=== PATIENT | female | born 1985 | race African-American/Black ===

== ENCOUNTER 2016-12-20 21:25 | Emergency (ER) | payer MEDICAID ==
[~2016-12-20] VITALS: Ht 160 cm; Wt 104.5 kg
[2016-12-20 21:27] VITALS: BP 161/102; PULSE 98; RESP 16; TEMP 99.3; O2SAT 97
--- NOTE | 2016-12-20 21:41 | PD ---
HPI Chief Complaint: Cold / Flu Symptoms Time Seen by Provider: 21:40 Travel History International Travel<30 days: No Contact w/Intl Traveler<30days: No Traveled to known affect area: No History of Present Illness HPI 31 YO F presents to the ED for evaluation of 2 day history of sore throat, chills, left ear pain. States that "my voice has gone out." The patient denies rhinorrhea, sinus congestion, cough, nausea, vomiting. She denies sick contacts. No treatment attempt at home. Patient also complains of nonpainful "bump" on the inner canthus of the right eye x "months." Denies vision changes. No treatment attempted at home. PFSH Past Medical History Medical History: Denies Significant Hx Tetanus Vaccination: > 5 Years ?: Unknown LMP: 11/22/2016 : 4 Para: 2 Miscarriage: 2 Past Surgical History Section: Yes (*2) Thoracic Surgery: Yes (chest tube for collapsed lung ) Other Surgery: Yes Social History Alcohol Use: Yes (occ) Tobacco Use: Yes Substance Use: Yes (mj) Allergies-Medications (Allergen,Severity, Reaction): Coded Allergies: No Known Allergies (Unverified , 12/20/16) Reported Meds & Prescriptions Reported Meds & Active Scripts Active Ibuprofen 600 Mg Tab 600 Mg PO Q8H PRN Magic Mouthwash Adult Liq (Multi-Ingredient Mouthwash/Gargle) 120 Ml Susp 5 Ml SWISH-SWAL ACHS Each 5mL contains: Nystatin 200,000units, Diphenhydramine 4.25mg, Viscous Lidocaine 10mg, Meza syrup 0.8 mL Fluticasone Nasal [place] 50 Mcg/Act Naspr 50 Mcg EACH NARE BID 50 mcg/spray Review of Systems Except as stated in HPI: all other systems reviewed are Neg Physical Exam Narrative GENERAL: Well-nourished, well-developed AA female in NAD SKIN: Warm and dry. 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 No signs of infection. HEAD: Normocephalic. Atraumatic. EYES: No scleral icterus. No injection or drainage. PERRLA. EOMI. ENT: Pearly reagan tympanic membranes bilaterally. Nasal mucosa is boggy,mild inflammation. Oropharynx without mild erythema. Tonsils 1+ bilaterally. No exudate or edema noted. Uvula midline. NECK: Supple, trachea midline. No JVD or lymphadenopathy. CARDIOVASCULAR: Regular rate and rhythm without murmurs, gallops, or rubs. 2+ DP and radial pulses bilaterally. RESPIRATORY: Breath sounds clear and equal bilaterally. No accessory muscle use. GASTROINTESTINAL: Abdomen soft, non-tender, nondistended. MUSCULOSKELETAL: No cyanosis, or edema. BACK: Nontender without obvious deformity. No CVA tenderness. Data Data Last Documented VS Vital Signs Date Time Temp Pulse Resp B/P Pulse Ox O2 Delivery O2 Flow Rate FiO2 12/20/16 21:27 99.3 98 16 161/102 97 Room Air Orders Influenzae A/B Antigen (12/20/16 21:40) Group A Rapid Strep Screen (12/20/16 21:40) Ibuprofen (Motrin) (12/20/16 22:15) Strep Culture (Group A) (12/20/16 21:49) MDM Medical Decision Making Medical Screen Exam Complete: Yes Emergency Medical Condition: Yes Differential Diagnosis Pharyngitis versus strep pharyngitis versus viral syndrome versus influenza versus dermatosis papulosis nigra versus other Narrative Course 31 YO F presents to the ED for evaluation of 2 day history of sore throat, chills, left ear pain, raspy voice. The patient denies rhinorrhea, sinus congestion, cough, nausea, vomiting, sick contacts. Patient also complains of nonpainful "bump" on the inner canthus of the right eye x "months." Denies vision changes. Vitals reviewed. Physical exam reveals an AA F in NAD. 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 There is a subcentimeter, nontender, unpigmented, maculopapular lesion of the inner canthus of the right eye. No signs of infection. No problems with the eye. Pearly reagan tympanic membranes bilaterally. The nasal mucosa is boggy with mild inflammation. Tonsils are 1+ bilaterally without exudate or edema. Uvula midline. Airway patent. Chest CTAB. Rapid strep and influenza swabs negative. I suspect there is an allergic component to her pharyngitis. She was prescribed Flonase, ibuprofen, magic mouthwash. She is instructed to add an OTC second generation antihistamine to these meds and follow up with the PCP and leader assembler. She indicated understanding of the instructions and is agreeable to the plan. The patient is stable and discharged home. Diagnosis Primary Impression: Pharyngitis Qualified Code: J02.9 - Pharyngitis, unspecified etiology Referrals: Primary Care Physician Patient Instructions: General Instructions, Pharyngitis (ED) Additional Instructions: Rest, hydrate. Take OTC antihistamine such as Claritin or Zyrtec daily for 14 days. Take medication as prescribed. Follow-up with your primary care provider. Follow-up with a leader assembler for evaluation of your new skin lesions. Return to the ED for any urgent or emergent medical condition. Med/Other Pt SpecificInfo: Prescription(s) given Scripts Ibuprofen 600 Mg Qnt066 Mg PO Q8H PRN (PAIN) #15 TAB Ref 0 Prov:Ramesh Dorantes MD 12/20/16 Zbtggnya-Wjhtbporgborzxg-Nutyedbgw Liq (Magic Mouthwash Adult Liq)120 Ml Susp5 Ml SWISH-SWAL ACHS #120 ML Ref 0 Each 5mL contains: Nystatin 200,000units, Diphenhydramine 4.25mg, Viscous Lidocaine 10mg, Meza syrup 0.8 mL Prov:Ramesh Dorantes MD 12/20/16 Fluticasone Nasal [place] 50 Mcg/Act Naspr50 Mcg EACH NARE BID #1 BOTTLE Ref 0 50 mcg/spray Prov:Ramesh Dorantes MD 12/20/16 Disposition: 01 DISCHARGE HOME Condition: Stable Ese Bradford Dec 20, 2016 21:41
[2016-12-20] MEDS ORDERED: IBUPROFEN 800 MG TAB PO ONE (22:15)
[2016-12-20] MEDS ORDERED: FLUT50SP EACH NARE (22:51)
[2016-12-20] MEDS ORDERED: MAGICADU2 SWISH-SWAL (22:51)
[2016-12-20] MEDS ORDERED: IBUP-232 PO (22:51)
== END 2016-12-20 23:25 | disposition home or self-care (01) ==
LOC: NEPE 21:25
DX: J02.9 Acute pharyngitis, unspecified (principal)
CPT/HCPCS: 87081; 87804; 87880; 99283

== ENCOUNTER 2017-01-08 09:33 | Emergency (ER) | payer MEDICAID ==
[~2017-01-08] VITALS: Ht 160 cm; Wt 113.0 kg
[~2017-01-08 09:33] MED LIST: FLUT50SP EACH NARE; IBUP-232 PO; MAGICADU2 SWISH-SWAL
[2017-01-08 09:35] VITALS: BP 167/92; PULSE 102; RESP 15; TEMP 98.2; O2SAT 98
[2017-01-08] MEDS ORDERED: TRIMSOL LEFT EYE (11:04)
--- NOTE | 2017-01-08 11:05 | PD ---
HPI Chief Complaint: Eye Problems/Injury Time Seen by Provider: 10:37 Travel History International Travel<30 days: No Contact w/Intl Traveler<30days: No Traveled to known affect area: No History of Present Illness HPI Patient is a 31-year-old female who presents to emergency room with complaints of left-sided eye pain and itchiness and drainage. She reports that onset of symptoms were yesterday, she does not use contacts or glasses. Denies fevers or chills, no other complaints. Patient also complaining of right-sided skin tag on her right armpit, reports that the skin tag appears bigger and would like it removed. PFSH Past Medical History Diminished Hearing: No Genitourinary: Yes (UTI HX ) Hypertension: Yes (PT STATES DOES NOT TAKE MED WAS DURING ) Tetanus Vaccination: > 5 Years Influenza Vaccination: No ?: Unknown LMP: 11/22/16 : 4 Para: 2 Miscarriage: 2 Past Surgical History Section: Yes (*2) Thoracic Surgery: Yes (chest tube for collapsed lung ) Other Surgery: Yes Social History Alcohol Use: Yes (occ) Tobacco Use: Yes Substance Use: Yes (mj) Allergies-Medications (Allergen,Severity, Reaction): Coded Allergies: No Known Allergies (Unverified , 01/08/17) Reported Meds & Prescriptions Reported Meds & Active Scripts Active No Active Prescriptions or Reported Medications Review of Systems General / Constitutional: No: Fever Eyes: Positive: Drainage, Redness, Tearing, No: Diploplia, Foreign Body Sensation, Pain, Visual changes HENT: No: Headaches Cardiovascular: No: Chest Pain or Discomfort Respiratory: No: Shortness of Breath Gastrointestinal: No: Abdominal Pain Genitourinary: No: Dysuria Musculoskeletal: No: Pain Skin: No Rash Neurologic: No: Weakness Psychiatric: No: Depression Endocrine: No: Polydipsia Hematologic/Lymphatic: No: Easy Bruising Physical Exam Narrative GENERAL: NAD,nontoxic SKIN: Focused skin assessment warm/dry. patient with skin tag under her right axilla, there is no purulence or drainage, there is no abscess, no bleeding or erythema or redness HEAD: Atraumatic. Normocephalic. EYES: Pupils equal and round. No scleral icterus. Left eye with injection and with purulent drainage. EOMI intact, no hyphema or hypopyon ENT: No nasal bleeding or discharge. Mucous membranes pink and moist. NECK: Trachea midline. No JVD. CARDIOVASCULAR: Regular rate and rhythm. No murmur appreciated. RESPIRATORY: No accessory muscle use. Clear to auscultation. Breath sounds equal bilaterally. GASTROINTESTINAL: Abdomen soft, non-tender, nondistended. Hepatic and splenic margins not palpable. MUSCULOSKELETAL: No obvious deformities. No clubbing. No cyanosis. No edema. Data Data Last Documented VS Vital Signs Date Time Temp Pulse Resp B/P Pulse Ox O2 Delivery O2 Flow Rate FiO2 01/08/17 10:10 17 01/08/17 09:35 98.2 102 167/92 98 [facility] Medical Decision Making Medical Screen Exam Complete: Yes Emergency Medical Condition: Yes Interpretation(s) Vital Signs Date Time Temp Pulse Resp B/P Pulse Ox O2 Delivery O2 Flow Rate FiO2 01/08/17 10:10 17 01/08/17 09:35 98.2 102 15 167/92 98 Differential Diagnosis Differential includes conjunctivitis, skin tag Narrative Course 31-year-old female who presents to emergency with with multiple complaints. Patient reports that her left eye has been irritated, reports that it feels itchy and reports increased drainage and irritation to her left eye. Patient appears to have a left-sided conjunctivitis, discussed need for antibiotics. Patient will ultimately follow-up with ophthalmology as outpatient. Patient also with skin tag on her right axilla which patient reports is " getting bigger" and would like it removed. Patient with no signs of infection, no signs of abscess. She understands that she will need to follow-up with dermatology for removal her skin tag and that it is not an emergent procedure that will be performed in the ER. Signs and symptoms of when to return to the emergency room was reviewed with patient in detail. Diagnosis Primary Impression: Conjunctivitis Qualified Code: H10.32 - Acute bacterial conjunctivitis of left eye Additional Impression: Skin tag Additional Instructions: Please follow up with field mechanic/site lead as outpatient Please follow-up with pipeliner for your skin tag removal Please follow-up with your primary care doctor Please take all antibiotics as prescribed Return to ER if symptoms worsen or progress Return to ER as needed Med/Other Pt SpecificInfo: Prescription(s) given Scripts Polymyxin B-Trimethoprim Opth Drops 10,000-0.1 Unit/Ml-% Soln2 Drop LEFT EYE Q6HR 10 Days Ref 0 Prov:Leela Smart DO 01/08/17 Disposition: 01 DISCHARGE HOME Condition: Stable Leela Smart DO Jan 08, 2017 11:05
[2017-01-08 11:11] VITALS: BP 110/78; TEMP 97.8
== END 2017-01-08 11:12 | disposition home or self-care (01) ==
LOC: NEPD 09:33
DX: H10.9 Unspecified conjunctivitis (principal); L91.8 Other hypertrophic disorders of the skin; I10 Essential (primary) hypertension; Z72.0 Tobacco use
CPT/HCPCS: 99283

== ENCOUNTER 2017-05-19 17:52 | Emergency (ER) | payer MEDICAID, OTHER ==
[~2017-05-19] VITALS: Ht 162.6 cm; Wt 90.0 kg
[~2017-05-19 17:52] MED LIST changes: -FLUT50SP EACH NARE; -IBUP-232 PO; -MAGICADU2 SWISH-SWAL; +TRIMSOL LEFT EYE
[2017-05-19 17:58] VITALS: BP 150/99; PULSE 106; RESP 18; TEMP 98.3; O2SAT 98
[2017-05-19 18:08] VITALS: BP 169/97; PULSE 96; RESP 18; O2SAT 99
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
== END 2017-05-19 18:33 | disposition home or self-care (01) ==
LOC: NEPD 17:52
DX: S00.33XA Contusion of nose, initial encounter (principal); S02.5XXA Fracture of tooth (traumatic), initial encounter for closed fracture; S50.311A Abrasion of right elbow, initial encounter; F17.200 Nicotine dependence, unspecified, uncomplicated; F12.90 Cannabis use, unspecified, uncomplicated; V89.2XXA Person injured in unspecified motor-vehicle accident, traffic, initial encounter
CPT/HCPCS: 99283